=== PATIENT | male | born 1990 | race Caucasian/White ===

== ENCOUNTER 2017-01-23 01:01 | Emergency (ER) | payer SELFPAY ==
[2017-01-23] MEDS ORDERED: IBUPROFEN 600 MG TABLET PO STA (01:18)
[2017-01-23] MEDS ORDERED: oxyCOD/ACETAMIN 5 MG/325 MG TABLET PO STA (01:18)
[2017-01-23] MEDS ORDERED: IBUPROFEN 600 MG TABLET PO ONE (01:20)
[2017-01-23] MEDS ORDERED: oxyCOD/ACETAMIN 5 MG/325 MG TABLET PO ONE (01:20)
--- NOTE | 2017-01-23 01:27 | ED Physician Documentation ---
PD HPI HEENT - Stated complaint Stated Complaint: TOOTHACHE - Chief complaint Chief Complaint: Heent - History obtained from History obtained from: Patient, Family - History of Present Illness Timing - onset: How many weeks ago (6) Timing - details: Gradual onset, Still present Location: Tooth Improves: Nothing Worsens: Temperatures Associated symptoms: No: Fever, Congestion, Rhinorrhea, Unable to swallow, Swollen nodes Similar symptoms before: Work up / diagnostics, Follow up Recently seen: Not recently seen - Additional information Additional information: Patient is a 26 year old male with no significant past medical history who is presenting to the emergency department for tooth pain. patient states that it has been going on for over a month. He has a follow up appointment in about 3 weeks but states that he could not wait that long. Patient states that it got even more severe tonight and he couldn't sleep. Review of Systems Ears: denies: Ear pain, Drainage/discharge Nose: denies: Rhinorrhea / runny nose, Congestion Throat: reports: Dental pain / toothache. denies: Sore throat GI: denies: Nausea, Vomiting Skin: denies: Rash, Lesions Immunocompromised: denies: Immunocompromised PD PAST MEDICAL HISTORY - Past Medical History Past Medical History: Yes Respiratory: Asthma Derm: Psoriasis - Past Surgical History Past Surgical History: No - Present Medications Home Medications: Ambulatory Orders Medication Instructions Recorded Confirmed Oxycodone HCl/Acetaminophen 1 - 2 each PO Q6H PRN #7 tablet 01/23/17 [Percocet 5-325 mg Tablet] - Allergies Allergies/Adverse Reactions: Allergies Allergy/AdvReac Type Severity Reaction Status Date / Time No Known Drug Allergies Allergy Verified 01/23/17 01:05 - Social History Does the pt smoke?: No Smoking Status: Never smoker Does the pt drink ETOH?: Yes ETOH Use: Liquor Does the pt have substance abuse?: No - Immunizations Immunizations are current?: Yes - POLST Patient has POLST: No PD ED PE NORMAL - Vitals Vital signs reviewed: Yes - General General: Alert and oriented X 3, No acute distress, Well developed/nourished - HEENT HEENT: Atraumatic, PERRL, Ears normal, Moist mucous membranes - Neck Neck: Supple, no meningeal sign, No JVD - Cardiac Cardiac: RRR, No murmur - Respiratory Respiratory: No respiratory distress - Abdomen Abdomen: Non distended - Derm Derm: Normal color, Warm and dry, No rash - Extremities Extremities: No deformity - Neuro Neuro: Alert and oriented X 3, No motor deficit, No sensory deficit, Normal speech - Psych Psych: Normal mood, Normal affect PD ED PE EXPANDED - HEENT HEENT: Dental decay, Dental TTP. No: Tonsillar exudate, Soft palate petecchiae , [employer], Dentition normal, Dental trauma, Dental abscess, Oral lesions / sores, Lip laceration Results - Vitals Vitals: Vital Signs - 24 hr 01/23/17 01/23/17 01:05 01:34 Temperature 36.7 C Heart Rate 92 77 Respiratory 16 16 Rate Blood Pressure 163/98 H 121/78 O2 Saturation 97 98 Oxygen O2 Source Room air Procedures - Regional nerve block Nerve block site: Post superior alveolar, Inferior alveolar Right / left: Right Nerve block anesthesia: Other (bupivicaine) Nerve block aftercare: Moderate Anesthesia, No complications PD MEDICAL DECISION MAKING - ED course Complexity details: reviewed old records, re-evaluated patient, considered differential, d/w patient, d/w family ED course: Patient was seen and examined at bedside. vital signs were within normal limits. There was no sign of abscess or fluid collection. nerve block was performed with bupivicane and patient was treated with motrin and percocet. patient required no further work up at this time and was stable for discharge with outpatient follow up. Departure - Departure Disposition: 01 Home, Self Care Clinical Impression: Pain, dental Condition: Good Instructions: ED Tooth Pain Follow-Up: primary,dentist [Other] - Within 1 week Prescriptions: Oxycodone HCl/Acetaminophen [Percocet 5-325 mg Tablet] 1 - 2 each PO Q6H PRN #7 tablet PRN Reason: pain Comments: There was no sign of acute infection today. You will need to follow up with your dentist for definitive care. You should take motrin 600mg for pain and an occasional percocet for breakthrough pain. You cannot take the percocet with alcohol or other sedatives and you cannot take it and drive. You may return to the emergency department at any time for new, worsening or uncontrollable symptoms. Discharge Date/Time: 01/23/17 01:35
[2017-01-23 01:36] VITALS: BP 121/78
== END 2017-01-23 01:35 | disposition home or self-care (01) ==
LOC: ED 01:01
DX: K08.89 Other specified disorders of teeth and supporting structures (principal); K02.9 Dental caries, unspecified
CPT/HCPCS: 64400; 99283; A9270